=== PATIENT | female | born 1995 | race Caucasian/White ===

== ENCOUNTER 2021-06-04 13:07 | Emergency (ER) | payer BC ==
[2021-06-04 16:19] LABS: #Eosinphils 0.1 10x3/uL (0.0-0.5); #Monocytes 0.9 10x3/uL (0.0-1.1); %Basophils 0.2 % (0.0-2.0); %Eosinophils 0.7 % (0.0-6.0); %Lymphocytes 17.8 % (18.0-47.0); %Monocytes 6.5 % (0.0-10.0); %Neutrophils 73.2 % (40.0-75.0); Hemoglobin 10.8 g/dL (12.0-15.5); Mean Corpuscular HGB CONC 32.8 g/dL (32.0-36.0); Mean Corpuscular Hemoglobin 29.5 pg (27.0-33.0); Mean Corpuscular Volume 89.9 fl (81.6-98.3); Mean Platelet Volume 10.3 fl (7.4-10.4); Platelet Count 351 10x3/uL (150-450); RBC Distribution Width 13.2 % (11.5-14.5); Red Blood Cell (RBC) Count 3.66 10x6/uL (3.90-5.03); White Blood Cell (WBC) Count 13.7 10x3/uL (3.5-10.5)
[2021-06-04 16:23] LABS: ALT (SGPT) 23 U/L (8-55); AST (SGOT) 19 U/L (5-34); Albumin 3.8 g/dL (3.5-5.0); Alkaline Phosphatase 72 U/L (40-110); Anion Gap 15 mmol/L (10-20); BUN (Urea Nitrogen) 6 mg/dL (7.0-18.7); Bilirubin, Total 0.3 mg/dL (0.2-1.2); Calc. Creatinine Clearance 0 mL/min (70-130); Carbon Dioxide 20 mmol/L (22-29); Chloride 106 mmol/L (98-107); Globulin 3.5 g/dL (2.4-3.5); Glucose 75 mg/dL (70-105); Lipase 15 U/L (8-78); Potassium 3.7 mmol/L (3.5-5.1); Protein, Total 7.3 g/dL (6.0-8.3); Sodium 137 mmol/L (136-145)
[2021-06-04 17:13] LABS: Bilirubin Neg (Negative); Blood, Urine 25 (Negative); Clarity Clear (Clear); Glucose, Urine (Dipstick) Normal (Negative); Ketone, Urine 15 mg/dL (Negative); Leukocyte 25 (Negative); Nitrite Negative (Negative); Protein, Urine (Dipstick) 15 mg/dl (Neg-Trace); Specific Gravity, Urine 1.015 (1.002-1.036); Urobilinogen Normal mg/dL (Less than 2)
[2021-06-04 18:46] LABS: Bacteria/HPF Rare-Few HPF (None Seen); RBC/HPF 0-3 HPF (0-3)
== END 2021-06-04 19:16 | disposition home or self-care (01) ==
LOC: CSHERS 13:07
DX: O99.612 Diseases of the digestive system complicating pregnancy, second trimester (principal); K80.20 Calculus of gallbladder without cholecystitis without obstruction; O99.112 Other diseases of the blood and blood-forming organs and certain disorders involving the immune mechanism complicating pregnancy, second trimester; D72.829 Elevated white blood cell count, unspecified; K21.9 Gastro-esophageal reflux disease without esophagitis; M25.511 Pain in right shoulder; M54.6 Pain in thoracic spine; Z3A.22 22 weeks gestation of pregnancy
CPT/HCPCS: 76705; 80053; 81003; 81015; 83690; 85025; 96372; J0500

== ENCOUNTER 2021-09-21 12:47 | Inpatient (IN) | payer BC ==
[2021-09-21 13:24] VITALS: BMI 28.1
[2021-09-21] MEDS ORDERED: Ibuprofen 800 MG TAB PO PRN (13:30)
[2021-09-21] MEDS ORDERED: Misoprostol 200 MCG TAB PR PRN (13:30)
[2021-09-21] MEDS ORDERED: Promethazine HCl 25 MG/ML VIAL IM PRN ×2 (13:30→22:22)
[2021-09-21] MEDS ORDERED: Acetaminophen 500 MG TAB PO PRN (13:30)
[2021-09-21] MEDS ORDERED: Diphenoxylate HCl/Atropine Tablet PO PRN ×2 (13:30)
[2021-09-21] MEDS ORDERED: Ondansetron PF 4 MG/2 ML Vial IVP PRN ×2 (13:30→22:22)
[2021-09-21] MEDS ORDERED: Lactated Ringer's 1,000 ML IV SCH (13:30)
[2021-09-21] MEDS ORDERED: Carboprost 250 MCG/ML AMP IM PRN (13:30)
[2021-09-21] MEDS ORDERED: NS w/ Oxytocin 30 units 500 ML IV SCH ×2 (13:30)
[2021-09-21] MEDS ORDERED: hydrALAZINE 20 MG/ML VIAL SLOW IVP PRN (13:30)
[2021-09-21] MEDS ORDERED: HYDROcodone/Acetaminophen 5/325 mg Tablet PO PRN ×2 (13:30)
[2021-09-21] MEDS ORDERED: Methylergonovine 0.2 MG/ML VIAL IM PRN (13:30)
[2021-09-21] MEDS ORDERED: Lidocaine 1% (PF) 30 ML VIAL SC PRN (13:30)
[2021-09-21 15:03] LABS: Hemoglobin 10.8 g/dL (12.0-15.5); Mean Corpuscular HGB CONC 32.3 g/dL (32.0-36.0); Mean Corpuscular Hemoglobin 28.3 pg (27.0-33.0); Mean Corpuscular Volume 87.7 fl (81.6-98.3); Mean Platelet Volume 10.9 fl (7.4-10.4); Platelet Count 272 10x3/uL (150-450); RBC Distribution Width 17.7 % (11.5-14.5); Red Blood Cell (RBC) Count 3.81 10x6/uL (3.90-5.03); White Blood Cell (WBC) Count 14.1 10x3/uL (3.5-10.5)
[2021-09-21] MEDS: Butorphanol Tartrate 1 MG/ML VIAL SLOW IVP PRN ×2 (15:29→19:50)
[2021-09-21 15:39] LABS: Syphilis Antibody Nonreactive (Nonreactive); Syphilis Antibody Index 0.06 S/CO (<1.00 Non-Reactive)
[2021-09-21 15:40] LABS: Hep B Surf Ag Non-Reactive S/CO (NonReactive)
[2021-09-21 15:48] LABS: HBSAg Index 0.15 S/CO (0-0.99)
[2021-09-21 17:08] LABS: SARS-CoV-2 NAA Rapid Test Not Detected (NotDetected)
[2021-09-21] MEDS ORDERED: Fentanyl 2 mcg/Bup 0.1% Cadd 100 ML ONE (20:35)
[2021-09-21] MEDS ORDERED: Acetaminophen 325 MG TAB PO PRN (22:22)
[2021-09-21] MEDS ORDERED: diphenhydrAMINE 50 MG/ML VIAL IVP PRN (22:22)
[2021-09-21] MEDS ORDERED: Naloxone HCl 0.4 mg/ml Vial IVP PRN ×2 (22:22)
[2021-09-21] MEDS ORDERED: Hydrocerin (Eucerin) Cream 120 gm Jar TOP PRN (22:22)
[2021-09-21] MEDS ORDERED: ePHEDrine Sulfate 50 MG/10 ML VIAL SLOW IVP PRN (22:22)
[2021-09-21] MEDS ORDERED: Lactated Ringer's 500 ML IV PRN (22:22)
[2021-09-21] MEDS ORDERED: Communication Order-Pharmacy FS SCH (22:30)
[2021-09-21] MEDS ORDERED: Fentanyl 2 mcg/Bupivacaine 0.1% Cassette 100 ML EPIDURAL SCH (22:30)
[2021-09-22 08:45] LABS: Critical Notified Whom: LD RN; RapidComm Collect By LDR RN
[2021-09-22 08:47] LABS: Critical Notified Whom: LDR RN; RapidComm Collect By LDR RN; pH (Cord, venous) 7.281 (7.250-7.350)
[2021-09-22] MEDS ORDERED: CEFAZOLIN 2 GM in Premix Bag 1 BAG IVPB SCH (09:30)
[2021-09-22] MEDS ORDERED: Promethazine HCl 25 MG/ML VIAL IM PRN (10:37)
[2021-09-22] MEDS ORDERED: Boostrix 0.5 ML (Tdap) VIAL IM ONE (10:37)
[2021-09-22] MEDS ORDERED: Benzocaine-Menthol 82.5 ML CAN TOP PRN (10:37)
[2021-09-22] MEDS ORDERED: Bisacodyl 10 MG SUPP PR PRN (10:37)
[2021-09-22] MEDS ORDERED: diphenhydrAMINE 25 MG CAP PO PRN (10:37)
[2021-09-22] MEDS ORDERED: Ondansetron PF 4 MG/2 ML Vial IVP PRN (10:37)
[2021-09-22] MEDS ORDERED: Preparation H Ointment 28 GM TUBE PR PRN (10:37)
[2021-09-22] MEDS ORDERED: Milk Of Magnesia 30 ML UDCUP PO PRN (10:37)
[2021-09-22] MEDS ORDERED: HYDROcodone/Acetaminophen 5/325 mg Tablet PO PRN ×2 (10:37)
[2021-09-22] MEDS ORDERED: hydrALAZINE 20 MG/ML VIAL SLOW IVP PRN (10:37)
[2021-09-22] MEDS: Ibuprofen 800 MG TAB PO SCH ×2 (13:54→21:16)
[2021-09-22] MEDS: Ferrous Sulfate 325 MG TAB PO SCH (14:29)
[2021-09-22] MEDS: Docusate Calcium (SURFAK) 240 MG CAP PO SCH (21:16)
[2021-09-23 05:21] LABS: Hemoglobin 7.9 g/dL (12.0-15.5)
[2021-09-23] MEDS: Ibuprofen 800 MG TAB PO SCH ×3 (05:31→21:09)
[2021-09-23] MEDS: Ferrous Sulfate 325 MG TAB PO SCH ×2 (08:21→19:24)
[2021-09-23] MEDS: Docusate Calcium (SURFAK) 240 MG CAP PO SCH ×2 (08:21→21:09)
[2021-09-24] MEDS: Ibuprofen 800 MG TAB PO SCH ×2 (05:06→13:44)
[2021-09-24] MEDS: Docusate Calcium (SURFAK) 240 MG CAP PO SCH (08:41)
[2021-09-24] MEDS: Ferrous Sulfate 325 MG TAB PO SCH ×2 (08:41→16:53)
[2021-09-24 11:45] VITALS: BP 124/77; TEMP 98.8
== END 2021-09-24 17:15 | disposition home or self-care (01) | DRG 806 ==
LOC: CSHLD/OP 12:47 → CSHLD 13:48 → CSHPP 09-22 10:50
PROVIDERS: ADMIT Student in an Organized Health Care Education/Training Program; ATTEND Student in an Organized Health Care Education/Training Program
PROC: 10D07Z6 Extraction of Products of Conception, Vacuum, Via Natural or Artificial Opening (ICD-10-PCS; principal; 2021-09-22)
PROC: 0KQM0ZZ Repair Perineum Muscle, Open Approach (ICD-10-PCS; 2021-09-22)
DX: O76 Abnormality in fetal heart rate and rhythm complicating labor and delivery (principal); D62 Acute posthemorrhagic anemia; Z37.0 Single live birth; Z20.822 Contact with and (suspected) exposure to COVID-19; Z88.0 Allergy status to penicillin; Z88.2 Allergy status to sulfonamides; O70.1 Second degree perineal laceration during delivery; O99.02 Anemia complicating childbirth; Z3A.38 38 weeks gestation of pregnancy
CPT/HCPCS: 36415; 82805; 85014; 85018; 85027; 86780; 86850; 86900; 86901; 87340; J0595; J0690; J2001; J2405; J2590; U0002